=== PATIENT | female | born 1995 | race Caucasian/White ===

== ENCOUNTER 2025-06-21 23:48 | Emergency (ER) | payer SELFPAY ==
[~2025-06-21] VITALS: Ht 165.1 cm; Wt 79.3 kg
[~2025-06-21 23:48] MED LIST: FAMOTIDINE 20 MG/ 2 ML VIAL IV ONE
[2025-06-22] MEDS ORDERED: EPIPEN 2-P0.3 MG/0.3 IM (00:56)
[2025-06-22 01:16] VITALS: BP 140/87
== END 2025-06-22 01:19 | disposition home or self-care (01) ==
LOC: ED 23:48
DX: T78.19XA Other adverse food reactions, not elsewhere classified, initial encounter (principal); R09.A2 Foreign body sensation, throat
CPT/HCPCS: 96374; 99283-25; J1200